=== PATIENT | male | born 1990 | race African-American/Black ===

== ENCOUNTER 2018-11-27 00:16 | Emergency (ER) | payer OTHER ==
[2018-11-27 00:45] VITALS: BP 138/80; PULSE 89; TEMP 98.4; BMI 39.2
[2018-11-27] MEDS ORDERED: CEFAZOLIN 1 GM in DEXTROSE 5%-WATER - 50 ML IVPB ONE (02:01)
[2018-11-27] MEDS ORDERED: CEFAZOLIN 1 GM/D5W 1 GM/50 ML BAG ONE (02:04)
--- NOTE | 2018-11-27 02:08 | PDOC ---
Documentation entered by Therese Dean SCRIBE, acting as scribe for Amanda Munguia MD. Amanda Munguia MD: This documentation has been prepared by the derrickibe, Therese Dean SCRIBE, under my direction and personally reviewed by me in its entirety. I confirm that the documentation accurately reflects all work, treatment, procedures, and medical decision making performed by me. Attending Attestation - Resident Resident Name: CassiusSalvatoreKhai - ED Attending Attestation I have performed the following: I have examined & evaluated the patient, The case was reviewed & discussed with the resident, I agree w/resident's findings & plan - HPI HPI: 11/27/18 02:02 The patient is a 28-year-old male with no reported past medical history presents to the emergency department with right 4th finger swelling with redness. The patient presents with a week of swelling and redness to the 4th finger, that has been worsening and is radiating up the finger. The patient reports the redness might be secondary to nail-biting or his dog licking the wound. Denies fever or chills. - Physicial Exam PE: 11/27/18 02:06 GENERAL: Awake, alert, and fully oriented, in no acute distress HEAD: No signs of trauma EYES: PERRLA, EOMI, sclera anicteric, conjunctiva clear ENT: Auricles normal inspection, hearing grossly normal, nares patent, oropharynx clear without exudates. Moist mucosa NECK: Normal ROM, supple, no lymphadenopathy, JVD, or masses LUNGS: Breath sounds equal, clear to auscultation bilaterally. No wheezes, and no crackles HEART: Regular rate and rhythm, normal S1 and S2, no murmurs, rubs or gallops ABDOMEN: Soft, nontender. EXTREMITIES: +4th finger, right hand is swollen at the DIP, red and fluctuant. Swelling is up to the PIP. neurovascularly intact. Cap refill is good. Rest of the extremities: Normal range of motion, no edema. No clubbing or cyanosis. No cords, erythema, or tenderness NEUROLOGICAL: Cranial nerves II through XII grossly intact. Normal speech, normal gait SKIN: +3rd right finger old scar up to the dorsal aspect of the finger. Warm, Dry, normal turgor, no rashes or lesions noted. - Medical Decision Making 11/27/18 02:37 Pt will have IV abx x 1 dose as well as basic labs and baseline crp and sed rate. He will likely be sent home with oral abx and follow up with a hand surgeon.
[2018-11-27 02:27] LABS: EOS % 7.6 % (0-4.5); HEMATOCRIT 44.3 % (35.4-49); HEMOGLOBIN 15.2 GM/dL (11.7-16.9); LYMPH % 36.1 % (8-40); MCH 30.7 pg (25.7-33.7); MCHC 34.4 g/dl (32.0-35.9); MEAN CELL VOLUME 89.4 fl (80-96); MONO % 7.5 % (3.8-10.2); NEUT % 47.8 % (42.8-82.8); PLATELET COUNT 267 K/MM3 (134-434); RBC 4.96 M/mm3 (4.00-5.60); RDW 14.3 % (11.9-15.9); WHITE BLOOD COUNT 8.9 K/mm3 (4.0-10.0)
--- NOTE | 2018-11-27 02:53 | PDOC ---
History of Present Illness - General Chief Complaint: Redness To Affected Area Stated Complaint: R RING FINGER INFECTION Time Seen by Provider: 11/27/18 01:31 - History of Present Illness Initial Comments: 11/27/18 01:56 Mr. Daigle is a 28 yo male w/ pmh of prior I&D required for finger infection who presents for evaluation of R 4th finger swelling, redness, and pain w/ purulent drainage for the last week. Patient reports he has been biting his nails and believes this to have lead to this episode. Patient denies any other symptoms at this time. The patient denies chest pain, shortness of breath, headache and dizziness. Denies fever, chills, nausea, vomit, diarrhea and constipation. Denies dysuria, frequency, urgency and hematuria. Past History - Past Medical History Allergies/Adverse Reactions: Allergies Allergy/AdvReac Type Severity Reaction Status Date / Time No Known Allergies Allergy Verified 11/27/18 01:28 Home Medications: Ambulatory Orders Cephalexin Monohydrate [Keflex -] 500 mg PO Q8H #21 capsule 11/27/18 COPD: No - Suicide/Smoking/Psychosocial Hx Smoking History: Current every day smoker Number of Cigarettes Smoked Daily: 10 Information on smoking cessation initiated: No Review of Systems - Review of Systems Comments:: 11/27/18 01:58 GENERAL/CONSTITUTIONAL: No fever or chills. No weakness. HEAD, EYES, EARS, NOSE AND THROAT: No change in vision. No ear pain or discharge. No sore throat. CARDIOVASCULAR: No chest pain or shortness of breath RESPIRATORY: No cough, wheezing, or hemoptysis. GASTROINTESTINAL: No nausea, vomiting, diarrhea or constipation. GENITOURINARY: No dysuria, frequency, or change in urination. MUSCULOSKELETAL: +R 4th finger pain as described. No joint or muscle swelling or pain. No neck or back pain. SKIN: No rash NEUROLOGIC: No headache, vertigo, loss of consciousness, or change in strength/ sensation. ENDOCRINE: No increased thirst. No abnormal weight change HEMATOLOGIC/LYMPHATIC: No anemia, easy bleeding, or history of blood clots. ALLERGIC/IMMUNOLOGIC: No hives or skin allergy. *Physical Exam - Vital Signs Last Vital Signs Temp Pulse Resp BP Pulse Ox 98.4 F 89 18 138/80 98 11/27/18 00:41 11/27/18 00:41 11/27/18 00:41 11/27/18 00:41 11/27/18 00:41 - Physical Exam Comments: 11/27/18 01:59 GENERAL: Awake, alert, and fully oriented, in no acute distress HEAD: No signs of trauma, normocephalic, atraumatic EYES: PERRLA, EOMI, sclera anicteric, conjunctiva clear ENT: Auricles normal inspection, hearing grossly normal, nares patent, oropharynx clear without exudates. Moist mucosa NECK: Normal ROM, supple, no lymphadenopathy, JVD, or masses LUNGS: No distress, speaks full sentences, clear to auscultation bilaterally HEART: Regular rate and rhythm, normal S1 and S2, no murmurs, rubs or gallops, peripheral pulses normal and equal bilaterally. ABDOMEN: Soft, nontender, normoactive bowel sounds. No guarding, no rebound. No masses EXTREMITIES: +R 4th finger swelling w/ warmth and redness to MCP. Otherwise normal inspection, normal range of motion, no edema. No clubbing or cyanosis. NEUROLOGICAL: Cranial nerves II through XII grossly intact. Normal speech, normal gait, no focal sensorimotor deficits SKIN: Warm, Dry, normal turgor, no rashes or lesions noted. ED Treatment Course - LABORATORY CBC & Chemistry Diagram: 11/27/18 02:20 11/27/18 02:20 Medical Decision Making - Medical Decision Making 11/27/18 02:55 Mr. Daigle is a 28 yo male w/ pmh as described who presents for evaluation of concern for finger infection. Patient evaluated for markers of systemic infection w/ labs and XR. Patient given ancef prophylactically and keflex for home use as well as given hand f/u info. Patient will be discharged for outpatient f/u as needed. *DC/Admit/Observation/Transfer Diagnosis at time of Disposition: Finger infection - Discharge Dispostion Disposition: HOME - Prescriptions Prescriptions: Cephalexin Monohydrate [Keflex -] 500 mg PO Q8H #21 capsule - Referrals Referrals: Roxana Durham MD [Primary Care Provider] - Herminio Gooden MD [Staff Physician] - - Patient Instructions Printed Discharge Instructions: DI for Wound Infection Additional Instructions: You were evaluated today in the ER and found to have a finger infection. We gave you IV antibiotics and sent a prescription to your pharmacy for continued antibiotics use. Take all medications as proscribed. You may also follow-up with hand surgery using the provided information. Return to ER if any continued pain and swelling, fevers, chills, or worsening of symptoms. - Post Discharge Activity
== END 2018-11-27 03:56 | disposition home or self-care (01) ==
LOC: JER 00:16
DX: L08.89 Other specified local infections of the skin and subcutaneous tissue (principal)
CPT/HCPCS: 36415; 73140-TC-RT-FY; 85025; 85651; 96365; 99282-25